=== PATIENT | male | born 1940 | race Caucasian/White ===

== ENCOUNTER 2016-07-04 09:19 | Observation (INO) | payer MEDICARE, BC ==
[~2016-07-04] VITALS: Ht 182.9 cm; Wt 67.3 kg
[2016-07-04] MEDS ORDERED: SODIUM CHLORIDE FLUSH 10ML SYR IVF ONE (09:30)
[2016-07-04 09:57] LABS: ASPARTATE AMINO TRANSFERASE 84 U/L (15-37); BLOOD UREA NITROGEN 13 mg/dL (7-18)
[2016-07-04 10:02] LABS: IS PT STATUS REG ER OR PRE ER? YES
[2016-07-04] MEDS ORDERED: NITROGLYCERIN SINGLE TAB 0.4 MG SL ONE ×2 (10:21→10:30)
[2016-07-04] MEDS ORDERED: SODIUM CHLORIDE 0.9% 1,000 ML IV ONE (10:22)
[2016-07-04] MEDS ORDERED: NITROGLYCERIN 0.4 MG BOTTLE (25 TABS) SL PRN (10:30)
[2016-07-04] MEDS ORDERED: SODIUM CHLORIDE 0.9%, 500ML IVBOLUS ONE (10:30)
[2016-07-04] MEDS ORDERED: MORPHINE SULFATE 4 MG/ML, 1ML IVPush PRN (10:30)
[2016-07-04] MEDS ORDERED: PLEASE ENTER WEIGHT MC SCH (10:30)
[2016-07-04] MEDS ORDERED: SODIUM CHLORIDE FLUSH 10ML SYR IVF PRN (10:30)
[2016-07-04] MEDS ORDERED: ONDANSETRON 2MG/ML, 2ML IVPush PRN (10:30)
[2016-07-04] MEDS ORDERED: BP meds PO (10:40)
[2016-07-04] MEDS ORDERED: THYROID MEDS PO (10:40)
[2016-07-04] MEDS ORDERED: LEVO100T5 PO (10:48)
[2016-07-04] MEDS ORDERED: BENA1TAB11 PO (10:49)
[2016-07-04 13:28] LABS: IS PT STATUS REG ER OR PRE ER? NO
[2016-07-04 13:32] VITALS: BP 139/71
[2016-07-04] MEDS: ENOXAPARIN 40 MG/0.4 ML SQ SCH (14:26)
[2016-07-04] MEDS ORDERED: ZOLPIDEM 5MG TABLET PO PRN (14:30)
[2016-07-04] MEDS: MORPHINE SULFATE 4 MG/ML, 1ML IVPush PRN (14:59)
[2016-07-04 18:55] VITALS: BP 117/64
[2016-07-05 02:00] VITALS: BP 174/79
[2016-07-05 03:00] VITALS: BP 134/84
[2016-07-05] MEDS: MORPHINE SULFATE 4 MG/ML, 1ML IVPush PRN (04:02)
[2016-07-05] MEDS ORDERED: LEVOTHYROXINE 100 MCG TABLET PO SCH (06:00)
[2016-07-05 07:26] VITALS: BP 159/73
[2016-07-05] MEDS ORDERED: REGADENOSON 0.4 MG/5 ML SYRINGE ONE (08:23)
[2016-07-05] MEDS ORDERED: BENAZEPRIL 20 MG TABLET PO SCH (09:00)
[2016-07-05] MEDS ORDERED: HYDROCHLOROTHIAZIDE 25 MG TABLET PO SCH (09:00)
[2016-07-05 13:57] VITALS: BP 125/69
[2016-07-05] MEDS: ENOXAPARIN 40 MG/0.4 ML SQ SCH (14:00)
== END 2016-07-05 15:20 | disposition home or self-care (01) ==
LOC: ED 10:09 → EDIP 10:22 → INTOOBSV 10:22 → 5SO 11:30 → DCLOUNGE 07-05 15:02
PROVIDERS: ADMIT Internal Medicine; ATTEND Internal Medicine
DX: I20.0 Unstable angina (principal); I10 Essential (primary) hypertension; E03.9 Hypothyroidism, unspecified; R14.3 Flatulence
CPT/HCPCS: 36415; 71010; 78452; 80053; 83880; 84484; 85025; 85610; 93005; 93017; 96361; 96372; 96374; 96376; 99285; A9502; C9898; G0378; J1650; J2785; J7040

== ENCOUNTER 2016-11-27 13:06 | Observation (INO) | payer MEDICARE, BC ==
[~2016-11-27] VITALS: Ht 182.9 cm; Wt 61.7 kg
[~2016-11-27 13:06] MED LIST: BENA1TAB11 PO; BP meds PO; LEVO100T5 PO; THYROID MEDS PO
[2016-11-27] MEDS ORDERED: SODIUM CHLORIDE FLUSH 10ML SYR IVF ONE (13:30)
[2016-11-27 13:41] LABS: HEMATOCRIT 39.4 % (39.2-51.8); HEMOGLOBIN 13.8 g/dL (13.7-18.0); WHITE BLOOD COUNT 4.4 x10^3/uL (3.4-10)
[2016-11-27 13:51] LABS: BLOOD UREA NITROGEN 16 mg/dL (7-18)
[2016-11-27 13:58] LABS: IS PT STATUS REG ER OR PRE ER? YES
[2016-11-27] MEDS ORDERED: SODIUM CHLORIDE 0.9% 1,000 ML IV ONE (14:45)
[2016-11-27] MEDS ORDERED: ONDANSETRON 2MG/ML, 2ML IVPush PRN ×2 (15:00→18:00)
[2016-11-27] MEDS ORDERED: MORPHINE SULFATE 4 MG/ML, 1ML IVPush PRN (15:00)
[2016-11-27 16:09] VITALS: BP 144/70
[2016-11-27] MEDS ORDERED: morphine SULFATE 10 MG/ML, 1ML IVPush PRN (18:00)
[2016-11-27] MEDS ORDERED: CALCIUM CARBONATE 500 MG TAB.CHEW PO PRN (18:00)
[2016-11-27] MEDS ORDERED: ENOXAPARIN 40 MG/0.4 ML SQ SCH (18:00)
[2016-11-27] MEDS ORDERED: MAGNESIUM HYDROXIDE 8%, 30ML UDC PO PRN (18:00)
[2016-11-27] MEDS ORDERED: NITROGLYCERIN 0.4 MG BOTTLE (25 TABS) SL PRN ×2 (18:00)
[2016-11-27] MEDS ORDERED: ZOLPIDEM 5MG TABLET PO PRN (18:00)
[2016-11-27] MEDS: FAMOTIDINE 20 MG TABLET PO SCH ×2 (18:02→19:48)
[2016-11-27 18:40] VITALS: BP 147/78
[2016-11-27 19:35] LABS: IS PT STATUS REG ER OR PRE ER? NO
[2016-11-27] MEDS: BUSPIRONE 10 MG TABLET PO SCH (19:48)
[2016-11-27] MEDS ORDERED: BUSPIRONE 10 MG TABLET PO SCH (21:00)
[2016-11-28 01:53] LABS: IS PT STATUS REG ER OR PRE ER? NO
[2016-11-28 02:30] VITALS: BP 154/82
[2016-11-28 05:07] LABS: HEMATOCRIT 38.9 % (39.2-51.8); HEMOGLOBIN 13.7 g/dL (13.7-18.0); WHITE BLOOD COUNT 4.2 x10^3/uL (3.4-10)
[2016-11-28 05:12] LABS: BLOOD UREA NITROGEN 14 mg/dL (7-18)
[2016-11-28 05:37] LABS: ASPARTATE AMINO TRANSFERASE 36 U/L (15-37)
[2016-11-28] MEDS: BUSPIRONE 10 MG TABLET PO SCH ×2 (05:49→15:16)
[2016-11-28] MEDS ORDERED: ASPIRIN 81 MG TABLET EC PO SCH (06:00)
[2016-11-28] MEDS ORDERED: LEVOTHYROXINE 88 MCG TABLET PO SCH ×2 (06:00)
[2016-11-28 06:57] VITALS: BP 128/83
[2016-11-28] MEDS: FAMOTIDINE 20 MG TABLET PO SCH ×2 (08:23→08:25)
[2016-11-28] MEDS ORDERED: BENAZEPRIL 10 MG TABLET PO SCH ×2 (09:00)
[2016-11-28] MEDS ORDERED: PSYLLIUM PACKET PO SCH ×2 (09:00)
[2016-11-28] MEDS ORDERED: HYDROCHLOROTHIAZIDE 25 MG TABLET PO SCH ×2 (09:00)
[2016-11-28] MEDS ORDERED: ASPIRIN 81 MG TABLET CHEW PO SCH (09:00)
[2016-11-28 13:02] VITALS: BP 151/76
[2016-11-28] MEDS ORDERED: BUSP10TA PO (15:03)
== END 2016-11-28 15:57 | disposition home or self-care (01) ==
LOC: ED 13:59 → EDIP 15:09 → INTOOBSV 15:09 → 5SO 15:45
PROVIDERS: ADMIT Internal Medicine; ATTEND Internal Medicine
DX: R07.89 Other chest pain (principal); I10 Essential (primary) hypertension; E03.9 Hypothyroidism, unspecified; K21.9 Gastro-esophageal reflux disease without esophagitis; K59.00 Constipation, unspecified; E55.9 Vitamin D deficiency, unspecified; F41.9 Anxiety disorder, unspecified; F32.9 Major depressive disorder, single episode, unspecified
CPT/HCPCS: 36415; 71010; 80048; 80053; 80061; 82040; 82607; 82746; 84443; 84484; 85025; 85610; 85730; 93005; 96360; 96361; 96372; 99285; G0378; J1650; J7030

== ENCOUNTER 2017-02-26 12:58 | Emergency (ER) | payer MEDICARE ==
[~2017-02-26] VITALS: Ht 182.9 cm; Wt 70.1 kg
[~2017-02-26 12:58] MED LIST changes: +BUSP10TA PO
[2017-02-26 14:01] LABS: BASOPHILS # (AUTO) 0.02 x10^3/uL (0-0.1); BASOPHILS % (AUTO) 0 % (0-1); EOSINOPHILS # (AUTO) 0.25 x10^3/uL (0-0.4); EOSINOPHILS % (AUTO) 3 % (1-7); LYMPHOCYTES # (AUTO) 0.91 x10^3/uL (1-3.4); LYMPHOCYTES % (AUTO) 11 % (22-44); MD NO; MEAN CORPUSCULAR HEMOGLOBIN 34.4 pg (27.5-34.5); MEAN CORPUSCULAR HGB CONC 34.3 g/dL (33.2-36.2); MEAN CORPUSCULAR VOLUME 100.3 fL (81-97); MEAN PLATELET VOLUME 8.3 fL (7.4-10.4); MONOCYTES # (AUTO) 0.99 x10^3/uL (0.2-0.8); MONOCYTES % (AUTO) 12 % (2-9); NEUTROPHILS # (AUTO) 6.06 x10^3/uL (1.8-6.8); NEUTROPHILS % (AUTO) 74 % (42-75); PLATELET COUNT 167 x10^3/uL (130-400); RED BLOOD COUNT 4.35 x10^6/uL (4.38-5.82); RED CELL DISTRIBUTION WIDTH 13.8 % (9.4-14.8)
[2017-02-26 14:13] LABS: ALBUMIN 3.8 g/dL (3.4-5.0); ANION GAP 5 mmol/L (5-15); CALCIUM 8.7 mg/dL (8.5-10.1); CHLORIDE 103 mmol/L (98-107); CREATININE 0.84 mg/dL (0.7-1.3)
[2017-02-26] MEDS ORDERED: OMNIPAQUE 350 MG/ML, 100ML BOTTLE ONE (14:43)
[2017-02-26 15:05] VITALS: BP 170/97
== END 2017-02-26 15:28 | disposition home or self-care (01) ==
LOC: ED 14:16
DX: K57.32 Diverticulitis of large intestine without perforation or abscess without bleeding (principal); I10 Essential (primary) hypertension
CPT/HCPCS: 36415; 74021; 74177; 80048; 82040; 85025; 99285; Q9967